=== PATIENT | male | born 1995 | race Two or more races ===

== ENCOUNTER 2024-02-26 20:58 | Emergency (ER) | payer OTHER ==
[~2024-02-26] VITALS: Ht 170.2 cm; Wt 93.0 kg
[2024-02-26] MEDS ORDERED: ACETAMINOPHEN 500 MG GEL..CAP PO STA (23:00)
[2024-02-26] MEDS ORDERED: DEXAMETHASONE SODIUM PHOSPHATE 4 MG/ML VIAL IM STA (23:01)
[2024-02-26] MEDS ORDERED: GUAIFENESIN/DEXTROMETHORPHAN 10ML BLIST.PACK PO STA (23:01)
[2024-02-26] MEDS ORDERED: ACETAMINOPHEN 500 MG GEL..CAP PO ONE (23:16)
[2024-02-26] MEDS ORDERED: DEXAMETHASONE SODIUM PHOSPHATE 4 MG/ML VIAL ONE (23:16)
[2024-02-26] MEDS ORDERED: GUAIFENESIN/DEXTROMETHORPHAN 5ML BLIST.PACK PO ONE (23:16)
[2024-02-26 23:45] LABS: HEMATOCRIT 39.2 % (39.0-48.0); HEMOGLOBIN 13.5 g/dL (13-16.00); MEAN CELL VOLUME 82.2 fL (80.0-100.00); MEAN CORPUSCULAR HEMOGLOBIN 28.3 pg (27.00-32.0); MEAN CORPUSCULAR HGB CONC 34.5 g/dl (32.0-36.0); PLATELET COUNT 221 K/uL (150-450); RED BLOOD COUNT 4.77 M/uL (4.00-6.00); RED CELL DISTRIBUTION WIDTH 13.2 % (11.5-14.5)
[2024-02-27] MEDS ORDERED: ZYNCOF 20-400120 ML PO (02:23)
[2024-02-27] MEDS ORDERED: PHENAGIL TABLE1 EACH PO (02:23)
[2024-02-27] MEDS ORDERED: DOLOGESIC-DF 51 EACH PO (02:23)
== END 2024-02-27 02:29 ==
LOC: ER 21:00
PROVIDERS: General Practice
DX: U07.1 COVID-19 (principal)